=== PATIENT | male | born 1985 | race Caucasian/White ===

== ENCOUNTER 2019-05-30 12:18 | Outpatient (CLI) | payer OTHER ==
--- NOTE | 2019-05-30 15:50 | MRI Report ---
Reason: CERVICALGIA Procedure Date: 05/30/2019 Accession Number: [id number] / [id number] Procedure: MRI - Cervical Spine W/O CPT Code: Final Report FULL RESULT: EXAM: MRI CERVICAL SPINE WITHOUT CONTRAST EXAM DATE: 05/30/2019 01:09 PM. CLINICAL HISTORY: 33-year-old male. Right arm and fingertip tingling and numbness. CERVICALGIA. COMPARISONS: None. TECHNIQUE: Multiplanar, multisequence T1-weighted and fluid-sensitive sequences of the cervical spine without contrast. Other: None. FINDINGS: Neurologic Structures: The visualized posterior fossa structures are unremarkable. No signal abnormality in the visualized spinal cord. Alignment: No scoliosis or spondylolisthesis. Bone Marrow: No gross fractures or bone lesions. No marrow edema. Interspace Levels/Facets: C1-C2: Unremarkable. C2-C3: Unremarkable. C3-C4: Mild diffuse disk bulge. Superimposed right foraminal protrusion measuring 2-3 mm. Mild to moderate right facet arthropathy. Mild to moderate right foraminal narrowing. No left foraminal narrowing. No central canal narrowing. C4-C5: Mild diffuse disk bulge with superimposed left central/subarticular protrusion measuring 4 mm. Mild central canal narrowing. Mild bilateral foraminal narrowing. C5-C6: Mild diffuse disk bulge. No significant central canal or foraminal narrowing. C6-C7: Mild to moderate diffuse disk bulge. Mild central canal narrowing. Mild to moderate right and mild left foraminal narrowing. C7-T1: Unremarkable. Musculature: Normal. No edema or fatty atrophy. Other: The paravertebral and prevertebral soft tissues are normal. IMPRESSION: 1. Mild multilevel degenerative spondylosis, as detailed above and summarized below. No evidence of acute fracture or traumatic subluxation. No cord signal abnormality. No bone marrow edema. 2. C3-C4: Mild to moderate right foraminal narrowing. No left foraminal narrowing. No central canal narrowing. 3. C4-C5: Mild central canal narrowing. Mild bilateral foraminal narrowing. 4. C6-C7: Mild central canal narrowing. Mild to moderate right and mild left foraminal narrowing. 5. No significant central canal or foraminal narrowing at the remaining cervical levels. RADIA
== END 2019-05-30 12:19 | disposition home or self-care (01) ==
LOC: DI 12:18
PROVIDERS: ATTEND Nurse Practitioner Family
DX: M50.21 Other cervical disc displacement, high cervical region (principal); M50.31 Other cervical disc degeneration, high cervical region; M48.02 Spinal stenosis, cervical region; M47.812 Spondylosis without myelopathy or radiculopathy, cervical region
CPT/HCPCS: 72141

== ENCOUNTER 2020-10-26 14:39 | Emergency (ER) | payer OTHER ==
[2020-10-26 14:48] VITALS: BP 163/84
[2020-10-26] MEDS ORDERED: BUPIVACAINE 0.5% PF 10 ML VIAL SUBQ STA (14:57)
[2020-10-26] MEDS ORDERED: CYCLOBENZAPRINE 10 MG TABLET PO STA (14:57)
--- NOTE | 2020-10-26 14:59 | ED Physician Documentation ---
History of Present Illness - Stated complaint Stated Complaint: NECK PX - Chief complaint Chief Complaint: Trauma Hd/Nk - History obtained from History obtained from: Patient - Additonal information Additional information: 35-year-old gentleman who is active duty in the [employer]. He actually has some chronic neck and back issues and had an MRI of his cervical spine in April 2019 showing mild multilevel degenerative spondylosis and multilevel stenosis and foraminal narrowing. He was in his usual state of health and bent over to pick something up and developed a severe stabbing pain in the right s ternocleidomastoid which is much worse with movement of the neck or lifting of his arms. There is no associated weakness, numbness, tingling in the arms or legs, no saddle anesthesia or fevers. He took ibuprofen prior to arrival which helped a little bit. Review of Systems Constitutional: reports: Reviewed and negative Eyes: reports: Reviewed and negative Ears: reports: Reviewed and negative Nose: reports: Reviewed and negative PD PAST MEDICAL HISTORY - Past Medical History Past Medical History: Yes Psych: Anxiety Musculoskeletal: Other Other Past Medical History: Arthritis in neck and back - Past Surgical History Past Surgical History: No - Present Medications Home Medications: Ambulatory Orders Medication Instructions Recorded Confirmed Cyclobenzaprine [Flexeril] 10 mg PO TID PRN #20 tablet 10/26/20 buPROPion [Wellbutrin Sr] 150 mg PO DAILY 10/26/20 10/26/20 - Allergies Allergies/Adverse Reactions: Allergies Allergy/AdvReac Type Severity Reaction Status Date / Time Cephalosporins Allergy Hives Verified 10/26/20 14:45 Penicillins Allergy Anaphylaxis Verified 10/26/20 14:45 - Social History Does the pt smoke?: No Smoking Status: Former smoker Does the pt drink ETOH?: No Does the pt have substance abuse?: No - Immunizations Immunizations are current?: Yes - POLST Patient has POLST: No PD ED PE NORMAL - Vitals Vital signs reviewed: Yes - General General: Alert and oriented X 3, No acute distress - Neck Neck: Other (Mild right sternocleidomastoid tenderness, no midline spinal tenderness. He is unable to rotate the neck due to pain.) - Extremities Extremities: Other (Equal bilateral hide salter strength, thumb extension, interosseous strength, and extension and flexion at both wrists.) - Neuro Neuro: Alert and oriented X 3, No motor deficit, No sensory deficit, Normal speech - Psych Psych: Normal mood, Normal affect Results - Vitals Vitals: Vital Signs - 24 hr 10/26/20 14:46 Temperature 36.7 C Heart Rate 88 Respiratory 18 Rate Blood Pressure 163/84 H O2 Saturation 100 Oxygen O2 Source Room air Procedures - General procedure General procedure: Procedure note: Trigger point injection of neck muscle spasm. 4 mL of 0.5% Marcaine was injected into the right sternocleidomastoid at the most tender part after alcohol prep. The patient tolerated this well. PD MEDICAL DECISION MAKING - ED course ED course: This young man has a neck muscle spasm. No concerning historical factors or neurologic findings. Departure - Departure Disposition: 01 Home, Self Care Clinical Impression: Neck muscle spasm Condition: Good Record reviewed to determine appropriate education?: Yes Instructions: ED Spasm Neck No Injury Prescriptions: Cyclobenzaprine [Flexeril] 10 mg PO TID PRN #20 tablet PRN Reason: Spasms Comments: You should continue the ibuprofen and injured muscle ibuprofen for muscle relaxer. Return for new or worsening symptoms and follow-up with your doctor at the end of the week for recheck.
== END 2020-10-26 15:15 | disposition home or self-care (01) ==
LOC: ED 14:39
DX: M62.838 Other muscle spasm (principal); G89.29 Other chronic pain; M54.9 Dorsalgia, unspecified; Z87.891 Personal history of nicotine dependence
CPT/HCPCS: 20552; 99282; 99284; A9270

== ENCOUNTER 2021-06-26 15:30 | Emergency (ER) | payer OTHER ==
[2021-06-26 16:01] LABS: BASOPHILS # (AUTO) 0.1 10^3/uL (0.0-0.1); BASOPHILS % (AUTO) 0.7 %; EOSINOPHILS # (AUTO) 0.1 10^3/uL (0.0-0.7); EOSINOPHILS % (AUTO) 1.7 %; HCT - HEMATOCRIT 43.6 % (42.0-52.0); HGB - HEMOGLOBIN 15.3 g/dL (14.0-18.0); LYMPHOCYTES # (AUTO) 2.1 10^3/uL (1.5-3.5); LYMPHOCYTES % (AUTO) 29.6 %; MEAN CORPUSCULAR HEMOGLOBIN 29.1 pg (27.0-31.0); MEAN CORPUSCULAR HGB CONC 35.1 g/dL (32.0-36.0); MEAN CORPUSCULAR VOLUME 82.9 fL (80.0-94.0); MEAN PLATELET VOLUME 9.9 fL (7.4-11.4); MONOCYTES # (AUTO) 0.4 10^3/uL (0.0-1.0); MONOCYTES % (AUTO) 6.4 %; NEUTROPHILS # (AUTO) 4.2 10^3/uL (1.5-6.6); NEUTROPHILS % (AUTO) 61.3 %; PLT - PLATELET COUNT 249 10^3/uL (130-450); RED BLOOD COUNT 5.26 10^6/uL (4.70-6.10); RED CELL DISTRIBUTION WIDTH 12.2 % (12.0-15.0); WHITE BLOOD COUNT 6.9 x10^3/uL (4.8-10.8)
--- NOTE | 2021-06-26 16:03 | XRAY Report ---
PROCEDURE: Chest 1 View X-Ray INDICATIONS: Chest pain TECHNIQUE: One view of the chest was acquired. COMPARISON: None FINDINGS: Surgical changes and devices: None. Lungs and pleura: No pleural effusions or pneumothorax. Lungs are clear. Mediastinum: Mediastinal contours appear normal. Heart size is normal. Bones and chest wall: No suspicious bony lesions. Overlying soft tissues appear unremarkable. IMPRESSION: Portable chest within normal limits for age. Reviewed by: Tanner Field MD on 06/26/2021 3:02 PM [facility] Approved by: Tanner Field MD on 06/26/2021 3:02 PM [facility] Station ID: [id number]
[2021-06-26 16:16] LABS: ALBUMIN 4.7 g/dL (3.2-5.5); ALBUMIN/GLOBULIN RATIO 1.4 (1.0-2.2); BILIRUBIN,TOTAL 0.2 mg/dL (0.2-1.0); CALCIUM 9.3 mg/dL (8.5-10.3); CREATININE 1.1 mg/dL (0.6-1.2); POTASSIUM 3.5 mmol/L (3.5-5.0)
--- NOTE | 2021-06-26 16:32 | ED Physician Documentation ---
History of Present Illness - Stated complaint Stated Complaint: BODY THINGLING/SHAKING - Chief complaint Chief Complaint: General - History obtained from History obtained from: Patient - Additonal information Additional information: 35-year-old gentleman with history of anxiety currently on Wellbutrin. He had pause Wellbutrin a couple months ago but then restarted it maybe a month ago back at full dose. He was in his usual state of health today when he started to feel flushed, dizzy, tingly all over especially both arms. He felt like he lost the circulation of both arms at once. It was very disconcerting. It does sound similar to his prior episodes of anxiety. Of note these symptoms which he has had in the past prior to the diagnosis of anxiety prompted a prolonged medical work-up which includes per his description Holter monitoring and a pheochromocytoma rule out which was all negative. Review of Systems Ten Systems: 10 systems reviewed and negative Constitutional: denies: Fever, Chills Nose: denies: Rhinorrhea / runny nose Cardiac: denies: Palpitations Respiratory: denies: Dyspnea, Cough PD PAST MEDICAL HISTORY - Past Medical History Psych: Anxiety Musculoskeletal: Other - Past Surgical History Past Surgical History: No - Present Medications Home Medications: Ambulatory Orders Medication Instructions Recorded Confirmed buPROPion [Wellbutrin Sr] 150 mg PO DAILY 10/26/20 06/26/21 - Allergies Allergies/Adverse Reactions: Allergies Allergy/AdvReac Type Severity Reaction Status Date / Time Cephalosporins Allergy Hives Verified 06/26/21 15:35 Penicillins Allergy Anaphylaxis Verified 06/26/21 15:35 - Social History Does the pt smoke?: No Smoking Status: Former smoker Does the pt drink ETOH?: No Does the pt have substance abuse?: No - Immunizations Immunizations are current?: Yes - POLST Patient has POLST: No PD ED PE NORMAL - Vitals Vital signs reviewed: Yes - General General: Alert and oriented X 3, No acute distress - HEENT HEENT: PERRL, EOMI - Neck Neck: Supple, no meningeal sign, No bony TTP - Cardiac Cardiac: RRR, No murmur, Strong equal pulses (radial) - Respiratory Respiratory: No respiratory distress, Clear bilaterally - Abdomen Abdomen: Non tender - Extremities Extremities: No edema, No calf tenderness / cord - Neuro Neuro: Alert and oriented X 3, Normal speech - Psych Psych: Normal mood, Normal affect Results - Vitals Vitals: Vital Signs - 24 hr 06/26/21 15:36 Temperature 36.8 C Heart Rate 113 H Respiratory 18 Rate Blood Pressure 152/97 H O2 Saturation 99 Oxygen O2 Source Room air - EKG (time done) 1540 Rate: Rate (enter#) (111) Rhythm: Sinus tachycardia [place]: Normal Intervals: Normal [place] QRS: Normal Ischemia: Normal ST segments - Labs Labs: Laboratory Tests 06/26/21 06/26/21 06/26/21 15:55 15:55 15:55 WBC 6.9 RBC 5.26 Hgb 15.3 Hct 43.6 MCV 82.9 MCH 29.1 MCHC 35.1 RDW 12.2 Plt Count 249 MPV 9.9 Neut # (Auto) 4.2 Lymph # (Auto) 2.1 Gem # (Auto) 0.4 Eos # (Auto) 0.1 Baso # (Auto) 0.1 Absolute Nucleated RBC 0.00 Nucleated RBC % 0.0 Sodium 137 Potassium 3.5 Chloride 99 L Carbon Dioxide 29 Anion Gap 9.0 BUN 16 Creatinine 1.1 Estimated GFR (MDRD) 77 L Glucose 179 H Calcium 9.3 Total Bilirubin 0.2 AST 29 ALT 64 H Alkaline Phosphatase 56 Troponin I High Sens 3.0 Total Protein 8.0 Albumin 4.7 Globulin 3.3 Albumin/Globulin Ratio 1.4 Lipase 27 PD MEDICAL DECISION MAKING - ED course ED course: 35-year-old gentleman presents with mild tachycardia and symptoms consistent with anxiety, his work-up is otherwise negative. Nothing in the history or physical to suggest PE and he is not short of breath. Departure - Departure Disposition: 01 Home, Self Care Clinical Impression: Tingling in extremities, Tachycardia Condition: Good Record reviewed to determine appropriate education?: Yes Instructions: ED Panic Attack Comments: As discussed this seems most consistent with anxiety. Return for new or worsening symptoms. Continue your Wellbutrin. [place]
[2021-06-26 16:48] VITALS: BP 151/103
[2021-06-26] MEDS ORDERED: MORPHINE 2 MG/ML CARPUJECT IVP STA (16:54)
== END 2021-06-26 16:54 | disposition home or self-care (01) ==
LOC: ED 15:30
DX: R20.2 Paresthesia of skin (principal); R00.0 Tachycardia, unspecified; R42 Dizziness and giddiness; R23.2 Flushing; F41.9 Anxiety disorder, unspecified; Z87.891 Personal history of nicotine dependence
CPT/HCPCS: 36415; 80053; 83690; 84484; 85025; 93005; 99284